=== PATIENT | male | born 1925 | race Caucasian/White ===

== ENCOUNTER 2017-04-05 11:35 | Inpatient (IN) | payer MEDICARE ==
[~2017-04-05] VITALS: Ht 170.2 cm; Wt 76.7 kg
[~2017-04-05 11:35] MED LIST: AMIODARONE HCL200 MG PO; CENTRUM SILVER1 EAC1 PO; CLOPIDOGREL75 MG PO; DOXAZOSIN MESYLA2 MG PO; FERROUS GLUCON325 M1 PO; GEMFIBROZIL600 MG PO; GLIPIZIDE10 MG PO; GLUCOPHAGE500 MG PO; HYDRALAZINE HCL25 MG PO; LASIX20 MG PO; LEVEMIR100 UNIT/1 SQ; MULTIVITAMINS1 EAC7 PO; NOVOLOG MI100 UNITS/ SQ; OMEPRAZOLE20 M1 PO; OMEPRAZOLE40 MG PO; SIMVASTATIN20 MG PO; TAMSULOSIN HCL0.4 MG PO; VITAMIN B-121000 MCG PO; WARFARIN SODIUM5 MG PO
[2017-04-05] MEDS ORDERED: PANTOPRAZOLE 40 MG 10ML VIAL IV STA (12:12)
[2017-04-05] MEDS ORDERED: SODIUM CHLORIDE 0.9% 1000ML 1,000 ML IV STA ×2 (12:12)
[2017-04-05] MEDS ORDERED: AZITHROMYCIN 500MG/NS 250 ML 250 ML IV STA (12:12)
[2017-04-05] MEDS ORDERED: OSELTAMIVIR PHOSPHATE 75 MG CAP PO ONE (12:15)
[2017-04-05] MEDS ORDERED: CEFTRIAXONE SOD 1 GM VIAL IM ONE (12:15)
[2017-04-05] MEDS ORDERED: SODIUM CHLORIDE 0.9% 1000ML 1,000 ML ONE (12:16)
[2017-04-05 12:34] LABS: BASOPHILS # (AUTO) 0.1 (0.0-0.1); BASOPHILS % 0.5 % (0.0-1.0); EOSINOPHILS % 0.2 % (0.0-6.0); HEMATOCRIT 28.7 % (38.2-49.6); HEMOGLOBIN 9.3 g/dL (14.0-18.0); LYMPHOCYTES # (AUTO) 0.9 (1.0-3.2); LYMPHOCYTES % 9.2 % (18.0-39.1); MEAN CORPUSCULAR HEMOGLOBIN 28.4 pg (28-32); MEAN CORPUSCULAR HGB CONC 32.4 g/dL (31-35); MEAN CORPUSCULAR VOLUME 87.8 fL (81-99); MONOCYTES # (AUTO) 0.8 (0.2-0.8); MONOCYTES % 8.5 % (4.4-11.3); NEUTROPHILS # (AUTO) 7.4 (2.1-6.9); NEUTROPHILS % 80.6 % (38.7-80.0); PLATELET COUNT 234 x10e3/uL (140-360); RED BLOOD COUNT 3.27 x10e6/uL (4.3-5.7); RED CELL DISTRIBUTION WIDTH 15.6 % (11.7-14.4)
--- NOTE | 2017-04-05 12:44 | Diagnostic Imaging Report ---
PROCEDURE: A single AP view of the chest. COMPARISON: 05/01/16 INDICATIONS: COUGH, CHEST PAIN, FLU-LIKE SYMPTOMS FINDINGS: Lines/tubes: None. Lungs: Low lung volumes. There is no evidence of pneumonia or pulmonary edema. Minimal left basilar subsegmental atelectasis. Pleura: There is no pleural effusion or pneumothorax. Heart and mediastinum: The heart and the mediastinum are unremarkable. Bones: No acute bony abnormality. IMPRESSION: 1. No acute cardiopulmonary disease. Dictated by: Alonso Aguirre M.D. on 04/05/2017 at 12:52 Electronically approved by: Alonso Aguirre M.D. on 04/05/2017 at 12:52
[2017-04-05 12:47] LABS: ALBUMIN 3.1 g/dL (3.5-5.0); ALBUMIN/GLOBULIN RATIO 0.8 (0.8-2.0); ANION GAP 16.7 mmol/L (8-16); CALCIUM 8.6 mg/dL (8.4-10.2); CREATININE, SERUM 2.84 mg/dL (0.72-1.25); MAGNESIUM 2.1 MG/DL (1.3-2.1); POTASSIUM 3.7 mmol/L (3.5-5.1)
[2017-04-05 12:48] LABS: INR 1.01; PARTIAL THROMBOPLASTIN TIME 31.5 seconds (23.8-35.5); PROTHROMBIN TIME 13.8 seconds (11.9-14.5)
[2017-04-05 13:06] LABS: CREATINE KINASE MB 1.1 ng/mL (0.00-5.00); THYROID STIMULATING HORMONE 1.024 uIU/mL (0.350-4.940); TROPONIN I 0.087 ng/mL (0-0.300)
[2017-04-05] MEDS ORDERED: DEXTROSE 50% SYRINGE 50 ML IV PRN (13:30)
[2017-04-05] MEDS ORDERED: BUPROPION HCL75 MG PO (14:11)
[2017-04-05] MEDS ORDERED: MIRTAZAPINE30 MG PO (14:11)
[2017-04-05] MEDS: CEFTRIAXONE SOD 1 GM VIAL IV SCH (14:15)
[2017-04-05 14:46] LABS: BILIRUBIN,URINE NEGATIVE (NEGATIVE); CLARITY,URINE CLEAR (CLEAR); COLOR,URINE YELLOW (YELLOW); KETONES,URINE NEGATIVE (NEGATIVE); LEUKOCYTE ESTERASE ,URINE NEGATIVE (NEGATIVE); NITRITE,URINE NEGATIVE (NEGATIVE); PROTEIN,URINE DIPSTICK 1+ (NEGATIVE); URINE UROBILINOGEN 0.2 mg/dL (0.2 - 1)
[2017-04-05 14:53] LABS: EPITHELIAL CELLS,URINE RARE /LPF
[2017-04-05] MEDS: ALBUTEROL SULF 0.083% NEB SOLN 3 ML NEB NEB SCH ×2 (16:17→19:27)
[2017-04-05] MEDS: INSULIN REGULAR, HUMAN 100 UNIT/1 ML 3ML VIAL SQ SCH ×2 (17:00→21:03)
[2017-04-05] MEDS ORDERED: TAMSULOSIN HCL 0.4 MG CAP PO SCH (17:00)
[2017-04-05] MEDS ORDERED: WARFARIN SOD 5 MG TAB PO SCH (17:00)
[2017-04-05] MEDS ORDERED: FERROUS GLUCONATE 325 MG PO SCH (17:00)
[2017-04-05 17:31] VITALS: BP 119/55
[2017-04-05] MEDS: SODIUM CHLORIDE 0.9% 1000ML 1,000 ML IV SCH (18:31)
[2017-04-05] MEDS: OSELTAMIVIR PHOSPHATE 75 MG CAP PO SCH (18:35)
[2017-04-05] MEDS: FERROUS SULFATE 325 MG TAB PO SCH (18:35)
[2017-04-05] MEDS: IPRATROPIUM BROMIDE 0.02% 2.5 ML NEB NEB SCH (19:27)
[2017-04-05 20:00] VITALS: BP 119/58
[2017-04-05] MEDS: SIMVASTATIN 20 MG TAB PO SCH (21:00)
[2017-04-05 21:04] LABS: CREATINE KINASE MB 1.2 ng/mL (0.00-5.00); TROPONIN I 0.088 ng/mL (0-0.300)
[2017-04-05 21:20] VITALS: BP 119/58
[2017-04-06] VITALS: BP 102/52
[2017-04-06] MEDS: ALBUTEROL SULF 0.083% NEB SOLN 3 ML NEB NEB SCH ×6 (00:05→19:15)
[2017-04-06] MEDS: IPRATROPIUM BROMIDE 0.02% 2.5 ML NEB NEB SCH ×4 (00:05→19:15)
[2017-04-06] MEDS: CEFTRIAXONE SOD 1 GM VIAL IV SCH ×2 (01:30→13:30)
[2017-04-06] MEDS: SODIUM CHLORIDE 0.9% 1000ML 1,000 ML IV SCH ×3 (02:32→21:28)
[2017-04-06 04:00] VITALS: BP 134/65
--- NOTE | 2017-04-06 06:40 | Diagnostic Imaging Report ---
EXAM: CHEST SINGLE (PORTABLE), AP 1 view DATE: 04/06/2017 5:00 AM Time stamp on exam: 0259 hours INDICATION: Pneumonia COMPARISON: AP view of the chest April 05, 2017 FINDINGS: LINES/TUBES: None LUNGS: Reticulonodular changes left lung base. PLEURA: No effusions or pneumothorax. HEART AND MEDIASTINUM: Normal size and contour. BONES AND SOFT TISSUES: No acute findings. IMPRESSION: Reticulonodular changes left lung base. This could represent atelectasis or pneumonia. Signed by: Dr. Roseanna Andre M.D. on 04/06/2017 6:37 AM
[2017-04-06] MEDS: INSULIN REGULAR, HUMAN 100 UNIT/1 ML 3ML VIAL SQ SCH ×4 (07:30→21:31)
[2017-04-06 08:28] LABS: ALBUMIN 2.5 g/dL (3.5-5.0); ALBUMIN/GLOBULIN RATIO 0.8 (0.8-2.0); ANION GAP 11.2 mmol/L (8-16); CALCIUM 7.8 mg/dL (8.4-10.2); CREATININE, SERUM 2.44 mg/dL (0.72-1.25); POTASSIUM 3.2 mmol/L (3.5-5.1)
[2017-04-06 08:58] LABS: BASOPHILS % 0.2 % (0.0-1.0); EOSINOPHILS # (AUTO) 0.1 (0.0-0.4); EOSINOPHILS % 1.4 % (0.0-6.0); LYMPHOCYTES # (AUTO) 1.5 (1.0-3.2); LYMPHOCYTES % 35.1 % (18.0-39.1); MEAN CORPUSCULAR HEMOGLOBIN 28.7 pg (28-32); MEAN CORPUSCULAR HGB CONC 32.5 g/dL (31-35); MEAN CORPUSCULAR VOLUME 88.4 fL (81-99); MONOCYTES # (AUTO) 0.6 (0.2-0.8); MONOCYTES % 14.9 % (4.4-11.3); NEUTROPHILS % 47.5 % (38.7-80.0); PLATELET COUNT 150 x10e3/uL (140-360); RED BLOOD COUNT 2.58 x10e6/uL (4.3-5.7); RED CELL DISTRIBUTION WIDTH 15.7 % (11.7-14.4)
[2017-04-06 08:59] VITALS: BP 134/58
[2017-04-06 08:59] LABS: CREATINE KINASE MB 1.5 ng/mL (0.00-5.00); TROPONIN I 0.095 ng/mL (0-0.300)
[2017-04-06] MEDS ORDERED: FUROSEMIDE 20 MG TAB PO SCH (09:00)
[2017-04-06] MEDS: CLOPIDOGREL BISULFATE 75 MG TAB PO SCH (09:00)
[2017-04-06] MEDS: AZITHROMYCIN 500MG/NS 250 ML 250 ML IV SCH (09:00)
[2017-04-06] MEDS: TAMSULOSIN HCL 0.4 MG CAP PO SCH (09:00)
[2017-04-06] MEDS: MULTIVITAMINS/MINERALS TAB PO SCH (09:00)
[2017-04-06] MEDS: FUROSEMIDE 40 MG TAB PO SCH (09:00)
[2017-04-06] MEDS: FERROUS SULFATE 325 MG TAB PO SCH ×2 (09:00→17:00)
[2017-04-06] MEDS ORDERED: CYANOCOBALAMIN 1,000 MCG TAB PO SCH (09:00)
[2017-04-06] MEDS: OSELTAMIVIR PHOSPHATE 75 MG CAP PO SCH ×2 (09:00→17:00)
[2017-04-06 09:20] LABS: HEMATOCRIT 22.8 % (38.2-49.6); HEMOGLOBIN 7.4 g/dL (14.0-18.0)
[2017-04-06 13:10] VITALS: BP 100/54
[2017-04-06] MEDS ORDERED: POTASSIUM CHLORIDE 10 MEQ TABCR PO ONE (14:15)
[2017-04-06 16:18] VITALS: BP 111/52
[2017-04-06 20:00] VITALS: BP 143/60
[2017-04-06] MEDS: SIMVASTATIN 20 MG TAB PO SCH (21:28)
[2017-04-07] VITALS (7 sets, daily range): BP systolic 117–150; BP diastolic 55–65
[2017-04-07] MEDS: CEFTRIAXONE SOD 1 GM VIAL IV SCH ×2 (02:00→13:30)
[2017-04-07] MEDS: ALBUTEROL SULF 0.083% NEB SOLN 3 ML NEB NEB SCH ×7 (03:00→23:30)
[2017-04-07] MEDS: SODIUM CHLORIDE 0.9% 1000ML 1,000 ML IV SCH ×2 (06:50→15:19)
[2017-04-07] MEDS: IPRATROPIUM BROMIDE 0.02% 2.5 ML NEB NEB SCH ×5 (07:30→23:30)
[2017-04-07] MEDS: INSULIN REGULAR, HUMAN 100 UNIT/1 ML 3ML VIAL SQ SCH ×4 (08:00→20:09)
[2017-04-07 08:41] LABS: BASOPHILS % 0.7 % (0.0-1.0); EOSINOPHILS # (AUTO) 0.2 (0.0-0.4); EOSINOPHILS % 4.7 % (0.0-6.0); HEMATOCRIT 22.5 % (38.2-49.6); HEMOGLOBIN 7.3 g/dL (14.0-18.0); LYMPHOCYTES % 22.8 % (18.0-39.1); MEAN CORPUSCULAR HEMOGLOBIN 29.1 pg (28-32); MEAN CORPUSCULAR HGB CONC 32.4 g/dL (31-35); MEAN CORPUSCULAR VOLUME 89.6 fL (81-99); MONOCYTES # (AUTO) 0.5 (0.2-0.8); MONOCYTES % 11.5 % (4.4-11.3); NEUTROPHILS # (AUTO) 2.5 (2.1-6.9); NEUTROPHILS % 59.6 % (38.7-80.0); PLATELET COUNT 176 x10e3/uL (140-360); RED BLOOD COUNT 2.51 x10e6/uL (4.3-5.7); RED CELL DISTRIBUTION WIDTH 15.8 % (11.7-14.4)
[2017-04-07] MEDS: AZITHROMYCIN 500MG/NS 250 ML 250 ML IV SCH (09:00)
[2017-04-07] MEDS: TAMSULOSIN HCL 0.4 MG CAP PO SCH (09:00)
[2017-04-07] MEDS: OSELTAMIVIR PHOSPHATE 75 MG CAP PO SCH ×2 (09:00→17:00)
[2017-04-07] MEDS: FERROUS SULFATE 325 MG TAB PO SCH ×2 (09:00→17:00)
[2017-04-07] MEDS: CLOPIDOGREL BISULFATE 75 MG TAB PO SCH (09:00)
[2017-04-07] MEDS: FUROSEMIDE 40 MG TAB PO SCH (09:00)
[2017-04-07] MEDS: MULTIVITAMINS/MINERALS TAB PO SCH (09:00)
[2017-04-07 09:18] LABS: ANION GAP 12.5 mmol/L (8-16); CALCIUM 7.6 mg/dL (8.4-10.2); CREATININE, SERUM 1.96 mg/dL (0.72-1.25); POTASSIUM 3.5 mmol/L (3.5-5.1)
[2017-04-07] MEDS ORDERED: MAGNESIUM HYDROXIDE 30 ML UDC PO PRN (13:15)
[2017-04-07] MEDS ORDERED: SODIUM CHLORIDE 0.9% 250ML 250 ML IV ONE (14:00)
[2017-04-07] MEDS ORDERED: ACETAMINOPHEN 325 MG TAB PO PRN (14:45)
[2017-04-07] MEDS: FUROSEMIDE INJ 10 MG/ML 2 ML VIAL IV PRN (18:39)
[2017-04-07] MEDS: SIMVASTATIN 20 MG TAB PO SCH (20:13)
[2017-04-07] MEDS ORDERED: SODIUM CHLORIDE 0.9% 250ML 250 ML ONE (22:26)
[2017-04-08] VITALS: BP 155/72
[2017-04-08] MEDS: CEFTRIAXONE SOD 1 GM VIAL IV SCH ×2 (01:30→14:00)
[2017-04-08] MEDS: SODIUM CHLORIDE 0.9% 1000ML 1,000 ML IV SCH ×2 (02:25→15:30)
[2017-04-08] MEDS: ALBUTEROL SULF 0.083% NEB SOLN 3 ML NEB NEB SCH ×6 (03:00→23:34)
[2017-04-08 04:00] VITALS: BP 156/69
[2017-04-08] MEDS: FUROSEMIDE INJ 10 MG/ML 2 ML VIAL IV PRN (04:16)
[2017-04-08 06:02] VITALS: BP 155/72
[2017-04-08 07:11] LABS: BASOPHILS % 0.7 % (0.0-1.0); EOSINOPHILS # (AUTO) 0.3 (0.0-0.4); EOSINOPHILS % 5.5 % (0.0-6.0); HEMATOCRIT 28.8 % (38.2-49.6); HEMOGLOBIN 9.5 g/dL (14.0-18.0); LYMPHOCYTES # (AUTO) 1.3 (1.0-3.2); MEAN CORPUSCULAR HEMOGLOBIN 28.4 pg (28-32); MONOCYTES # (AUTO) 0.5 (0.2-0.8); MONOCYTES % 9.6 % (4.4-11.3); NEUTROPHILS # (AUTO) 3.2 (2.1-6.9); NEUTROPHILS % 59.5 % (38.7-80.0); PLATELET COUNT 158 x10e3/uL (140-360); RED BLOOD COUNT 3.35 x10e6/uL (4.3-5.7); RED CELL DISTRIBUTION WIDTH 15.7 % (11.7-14.4)
[2017-04-08] MEDS: INSULIN REGULAR, HUMAN 100 UNIT/1 ML 3ML VIAL SQ SCH ×4 (07:30→21:36)
[2017-04-08] MEDS: IPRATROPIUM BROMIDE 0.02% 2.5 ML NEB NEB SCH ×3 (08:00→20:05)
[2017-04-08 09:01] VITALS: BP 159/67
[2017-04-08] MEDS: FERROUS SULFATE 325 MG TAB PO SCH ×2 (09:54→17:00)
[2017-04-08] MEDS: MULTIVITAMINS/MINERALS TAB PO SCH (09:54)
[2017-04-08] MEDS: AZITHROMYCIN 500MG/NS 250 ML 250 ML IV SCH (09:54)
[2017-04-08] MEDS: FUROSEMIDE 40 MG TAB PO SCH (09:54)
[2017-04-08] MEDS: OSELTAMIVIR PHOSPHATE 75 MG CAP PO SCH ×2 (09:54→17:00)
[2017-04-08] MEDS: TAMSULOSIN HCL 0.4 MG CAP PO SCH (09:54)
[2017-04-08] MEDS: HYDRALAZINE HCL 25 MG TAB PO SCH ×2 (15:26→21:35)
[2017-04-08 17:36] VITALS: BP 141/66
[2017-04-08 20:00] VITALS: BP 131/61
[2017-04-08] MEDS: SIMVASTATIN 20 MG TAB PO SCH (21:35)
--- NOTE | 2017-04-08 21:56 | Consultation ---
DATE OF CONSULTATION: April 07, 2017 CARDIOLOGY CONSULTATION REASON FOR CONSULTATION: Evaluate cardiac status. HISTORY OF PRESENT ILLNESS: Mr. Martínez is an 89-year-old gentleman who is well known to us with past medical history of hypertension, hypercholesterolemia, coronary artery disease with prior history of PCI to the circumflex and LAD, history of anemia, type 2 diabetes, chronic kidney disease, stage 3 with prior history of volume overload. The patient does have a history of paroxysmal atrial fibrillation and is off anticoagulation therapy due to his anemia issues and history of mechanical falls in the past. On the patient's recent history, he denies any chest pain or discomfort. He had been doing well up until yesterday. He just felt not quite himself and had exertional dyspnea and difficulty standing up, just feeling not quite himself. The patient's daughter has been experiencing URI symptoms and was noted to have low-grade fevers and just mild nasal stuffiness. He was brought into the emergency room where he was noted to be severely anemic with hemoglobin of 7.3 and hematocrit of 22.5 and had a positive influenza A screen. The patient was admitted for further care and management. We had a long discussion today with the patient and family at the bedside. He reports feeling relatively okay today and feels a little bit more energetic after receiving some gentle IV fluids. He reports low-grade fevers, a little bit of chills and does report receiving an influenza vaccine earlier this year. In fact, he reports his daughter is a little bit worse off than him. He denies any bright red blood per rectum, melena or any hematemesis, but does have chronic anemia and has had to receive blood in the past. The patient is on the verge of receiving packed red blood cells for his anemia. PAST MEDICAL HISTORY: 1. Hypertension, essential. 2. Hypercholesterolemia. 3. Chronic kidney disease, stage 3, with baseline serum creatinine of 1.9 range. 4. History of volume overload secondary to his renal issues. 5. History of coronary artery disease with prior history of PCI to the circumflex and LAD arteries. 6. Systolic heart failure with EF baseline about 40%. 7. History of paroxysmal atrial fibrillation and sick sinus syndrome, not an anticoagulation therapy due to anemia. 8. DJD. 9. History of diverticulosis. PAST SURGICAL HISTORY: 1. History of appendectomy. 2. History of tonsillectomy. 3. History of prostate and bladder surgeries in 2014. 4. History of bilateral cataract surgery. FAMILY HISTORY: Mother at 72 with aneurysm and heart disease. Father at 82 with accident. SOCIAL HISTORY: He is a . He is a former smoker. He quit in 1986. However, he actively dips tobacco and is dipping today. Denies any alcohol or illicit drug use. ALLERGIES: NO KNOWN DRUG ALLERGIES. HOME MEDICATIONS: 1. Amiodarone 200 mg Saturday, Saturday and Saturday. 2. Wellbutrin 75 mg daily. 3. Hydralazine 50 mg b.i.d. 4. Omeprazole 40 mg daily. 5. Insulin, Levemir daily. 6. Remeron 30 mg nightly. 7. Plavix 75 mg daily. 8. Gluconate 325 mg b.i.d. 9. Lasix 40 mg daily. 10. Multivitamin tablet daily. 11. Zocor 20 mg daily. 12. Tamsulosin 0.4 mg daily. REVIEW OF SYSTEMS: GENERAL: Positive for fatigue, malaise, low-grade fevers and slight chills. HEENT: No visual complaints. A little bit of stuffy nose. No sore throat. RESPIRATORY: Has slight cough and a little bit of exertional dyspnea. CARDIOVASCULAR: As per HPI. No chest pain or discomfort. GI: Denies any melena, bright red blood per rectum, nausea or vomiting. : Has urinary frequency and nocturia. HEMATOLOGY: Positive for easy bruising, no bleeding. ID: No known history of immunodeficiency. MUSCULOSKELETAL: Chronic back pains. Denies any leg swelling or leg cramps. NEUROLOGIC: Denies any focal weakness, numbness, tingling, seizures, headache. Remainder of the review of systems negative, otherwise mentioned. PHYSICAL EXAMINATION VITAL SIGNS: Height of 67 inches, weight of 168 pounds, temperature 97.6, pulse 66, respiratory rate 24, blood pressure 142/63, oxygen saturation 98% on room air. GENERAL: This is a frail, old man who is currently in no apparent distress. HEENT: Normocephalic, atraumatic. Extraocular movements are intact. Oropharynx is clear with poor dentition. NECK: No lymphadenopathy, no thyromegaly. There is a left carotid bruit. CARDIOVASCULAR: Regular rate and rhythm. Normal S1 and S2. A soft 3/6 systolic ejection murmur at the right upper sternal border. LUNGS: Show poor air flow throughout lung melendez. Diminished air entry consistent with COPD type changes. ABDOMEN: Soft and nontender, nondistended with normoactive bowel sounds. No hepatosplenomegaly. BACK: No costovertebral angle tenderness. EXTREMITIES: Warm with scattered varicose veins. There is 1+ to 2+ radial pulses. There are 2+ femoral pulses and diminished pedal pulses. NEUROLOGIC: He is alert and oriented. He has got symmetric bilateral leg weakness. Of note, usually he using walking aid for ambulation. PSYCHIATRIC: Normal fluent speech, appropriate affect, no anxiety or delusions. DIAGNOSES 1. Weakness secondary to sepsis, influenza A infection. 2. Chronic systolic heart failure. 3. Symptomatic anemia. 4. History of paroxysmal atrial fibrillation, not on anticoagulation therapy due to comorbidities. 5. Chronic kidney disease stage 3. 6. Coronary artery disease with prior history of stenting to the LAD and circumflex arteries, most recently in December 2014. 7. Carotid artery disease. 8. Type 2 diabetes with complications. PLANS/RECOMMENDATIONS: 1. From a cardiovascular standpoint, I will be largely supportive. I agree with Tamiflu treatment as symptom complexes started within the past 48 hours. 2. I agree with packed red blood cell transfusion. Will need some Lasix in between doses. 3. Will hold his antiplatelet therapy for now in light of his significant anemia. 4. Aggressive risk factor modification, medical therapy as tolerated. 5. Of note, the patient is not on beta jorge due to his prior history of issues with bradyarrhythmias. 6. The patient is on rhythm control strategy with amiodarone therapy. Will continue that. 7. Will continue to follow this patient with you. Thank you for this referral. Job#: [id number]
[2017-04-09] VITALS: BP 157/69
[2017-04-09] MEDS: CEFTRIAXONE SOD 1 GM VIAL IV SCH ×2 (02:24→14:00)
[2017-04-09] MEDS: SODIUM CHLORIDE 0.9% 1000ML 1,000 ML IV SCH ×2 (03:00→13:00)
[2017-04-09] MEDS: IPRATROPIUM BROMIDE 0.02% 2.5 ML NEB NEB SCH ×3 (03:50→11:20)
[2017-04-09] MEDS: ALBUTEROL SULF 0.083% NEB SOLN 3 ML NEB NEB SCH ×5 (03:50→18:55)
[2017-04-09 04:00] VITALS: BP 171/81
[2017-04-09 07:05] LABS: BASOPHILS % 0.6 % (0.0-1.0); EOSINOPHILS # (AUTO) 0.2 (0.0-0.4); EOSINOPHILS % 3.2 % (0.0-6.0); HEMATOCRIT 30.9 % (38.2-49.6); LYMPHOCYTES # (AUTO) 1.1 (1.0-3.2); LYMPHOCYTES % 17.6 % (18.0-39.1); MEAN CORPUSCULAR HGB CONC 32.4 g/dL (31-35); MEAN CORPUSCULAR VOLUME 86.6 fL (81-99); MONOCYTES # (AUTO) 0.5 (0.2-0.8); MONOCYTES % 8.7 % (4.4-11.3); NEUTROPHILS # (AUTO) 4.3 (2.1-6.9); NEUTROPHILS % 69.3 % (38.7-80.0); PLATELET COUNT 166 x10e3/uL (140-360); RED BLOOD COUNT 3.57 x10e6/uL (4.3-5.7); RED CELL DISTRIBUTION WIDTH 15.5 % (11.7-14.4)
[2017-04-09] MEDS: INSULIN REGULAR, HUMAN 100 UNIT/1 ML 3ML VIAL SQ SCH ×4 (07:30→21:54)
[2017-04-09 07:31] LABS: ALBUMIN 2.8 g/dL (3.5-5.0); ALBUMIN/GLOBULIN RATIO 0.8 (0.8-2.0); ANION GAP 13.5 mmol/L (8-16); CALCIUM 8.1 mg/dL (8.4-10.2); CREATININE, SERUM 1.97 mg/dL (0.72-1.25); POTASSIUM 3.5 mmol/L (3.5-5.1)
[2017-04-09 08:19] VITALS: BP 140/66
[2017-04-09] MEDS: FERROUS SULFATE 325 MG TAB PO SCH ×2 (09:54→17:49)
[2017-04-09] MEDS: HYDRALAZINE HCL 25 MG TAB PO SCH ×3 (09:54→21:53)
[2017-04-09] MEDS: OSELTAMIVIR PHOSPHATE 75 MG CAP PO SCH ×2 (09:54→17:49)
[2017-04-09] MEDS: FUROSEMIDE 40 MG TAB PO SCH (09:54)
[2017-04-09] MEDS: MULTIVITAMINS/MINERALS TAB PO SCH (09:54)
[2017-04-09] MEDS: AZITHROMYCIN 500MG/NS 250 ML 250 ML IV SCH (09:54)
[2017-04-09] MEDS: TAMSULOSIN HCL 0.4 MG CAP PO SCH (09:54)
[2017-04-09 12:38] VITALS: BP 114/54
--- NOTE | 2017-04-09 13:59 | Diagnostic Imaging Report ---
PROCEDURE: Frontal and lateral views of the chest. COMPARISON: Chest radiograph from 04/06/2017. CT of the abdomen and pelvis from 12/12/2012. INDICATIONS: FLU/SHORTNESS OF BREATH FINDINGS: Lines/tubes: None. Lungs: The lungs are well inflated and clear. There is no evidence of pneumonia or pulmonary edema. Pleura: There is no pleural effusion or pneumothorax. Heart and mediastinum: The heart size is at the upper limit of normal. Bones: No acute bony abnormality. Chronic compression fracture of the T12 vertebral body with focal kyphosis at this level. IMPRESSION: No evidence of infection or edema. Dictated by: Anand William M.D. on 04/09/2017 at 14:07 Electronically approved by: Anand William M.D. on 04/09/2017 at 14:07
[2017-04-09 16:37] VITALS: BP 135/65
[2017-04-09 20:00] VITALS: BP 169/72
[2017-04-09] MEDS: SIMVASTATIN 20 MG TAB PO SCH (21:53)
[2017-04-10] VITALS: BP 162/69
[2017-04-10] MEDS: ALBUTEROL SULF 0.083% NEB SOLN 3 ML NEB NEB SCH ×4 (00:50→15:30)
[2017-04-10] MEDS: CEFTRIAXONE SOD 1 GM VIAL IV SCH ×2 (01:55→13:26)
[2017-04-10 04:00] VITALS: BP 131/78
[2017-04-10] MEDS: IPRATROPIUM BROMIDE 0.02% 2.5 ML NEB NEB SCH ×2 (07:15→12:00)
[2017-04-10] MEDS: INSULIN REGULAR, HUMAN 100 UNIT/1 ML 3ML VIAL SQ SCH ×2 (07:30→11:30)
[2017-04-10 08:00] VITALS: BP 138/70
[2017-04-10] MEDS: FERROUS SULFATE 325 MG TAB PO SCH (09:44)
[2017-04-10] MEDS: HYDRALAZINE HCL 25 MG TAB PO SCH ×2 (09:44→15:00)
[2017-04-10] MEDS: AZITHROMYCIN 500MG/NS 250 ML 250 ML IV SCH (09:44)
[2017-04-10] MEDS: TAMSULOSIN HCL 0.4 MG CAP PO SCH (09:44)
[2017-04-10] MEDS: OSELTAMIVIR PHOSPHATE 75 MG CAP PO SCH (09:45)
[2017-04-10] MEDS: MULTIVITAMINS/MINERALS TAB PO SCH (09:45)
[2017-04-10] MEDS: FUROSEMIDE 40 MG TAB PO SCH (09:45)
[2017-04-10] MEDS: SODIUM CHLORIDE 0.9% 1000ML 1,000 ML IV SCH ×2 (13:19→13:25)
== END 2017-04-10 16:00 | DRG 194 ==
LOC: ER 11:35 → ERHOLD 13:35 → MED/SURG3 16:34
PROC: 30233N1 Transfusion of Nonautologous Red Blood Cells into Peripheral Vein, Percutaneous Approach (ICD-10-PCS; principal; 2017-04-07)
DX: J10.1 Influenza due to other identified influenza virus with other respiratory manifestations (principal); I13.0 Hypertensive heart and chronic kidney disease with heart failure and stage 1 through stage 4 chronic kidney disease, or unspecified chronic kidney disease; E11.22 Type 2 diabetes mellitus with diabetic chronic kidney disease; I50.22 Chronic systolic (congestive) heart failure; I48.0 Paroxysmal atrial fibrillation; I49.5 Sick sinus syndrome; Z79.01 Long term (current) use of anticoagulants; N18.3 Chronic kidney disease, stage 3 (moderate); Z79.4 Long term (current) use of insulin; I25.10 Atherosclerotic heart disease of native coronary artery without angina pectoris; Z95.5 Presence of coronary angioplasty implant and graft; D64.9 Anemia, unspecified; R53.81 Other malaise; Z87.891 Personal history of nicotine dependence
CPT/HCPCS: 36415; 36430; 71010; 71020; 80048; 80053; 81001; 82550; 82553; 82948; 83605; 83690; 83735; 83880; 84443; 84484; 85025; 85610; 85730; 86850; 86900; 86920; 87040; 87086; 87400; 93005; 97139; 99284; J0456; J0696; J1940; J7030; J7050; P9016

== ENCOUNTER → 2017-04-16 | Outpatient (CLI) | payer OTHER ==
[~2017-04-16] MED LIST changes: +BUPROPION HCL75 MG PO; +MIRTAZAPINE30 MG PO
[2017-04-17 11:34] LABS: BASOPHILS # (AUTO) 0.1 (0.0-0.1); BASOPHILS % 0.6 % (0.0-1.0); EOSINOPHILS # (AUTO) 0.2 (0.0-0.4); EOSINOPHILS % 2.3 % (0.0-6.0); HEMATOCRIT 30.2 % (38.2-49.6); HEMOGLOBIN 9.8 g/dL (14.0-18.0); LYMPHOCYTES # (AUTO) 0.9 (1.0-3.2); MEAN CORPUSCULAR HEMOGLOBIN 28.5 pg (28-32); MEAN CORPUSCULAR HGB CONC 32.5 g/dL (31-35); MEAN CORPUSCULAR VOLUME 87.8 fL (81-99); MONOCYTES # (AUTO) 0.7 (0.2-0.8); MONOCYTES % 8.6 % (4.4-11.3); NEUTROPHILS # (AUTO) 5.9 (2.1-6.9); NEUTROPHILS % 76.5 % (38.7-80.0); PLATELET COUNT 240 x10e3/uL (140-360); RED BLOOD COUNT 3.44 x10e6/uL (4.3-5.7); RED CELL DISTRIBUTION WIDTH 15.2 % (11.7-14.4)
[2017-04-17 11:43] LABS: ANION GAP 14.1 mmol/L (8-16); CALCIUM 8.8 mg/dL (8.4-10.2); CREATININE, SERUM 2.02 mg/dL (0.72-1.25); POTASSIUM 4.1 mmol/L (3.5-5.1)
== END ==
LOC: NPA 09:00
DX: Z02.89 Encounter for other administrative examinations (principal)
CPT/HCPCS: 36415; 80048; 85025

== ENCOUNTER → 2017-04-25 | Outpatient (CLI) | payer OTHER | LOC: NPA 13:30 | DX: Z02.89 Encounter for other administrative examinations (principal) | CPT/HCPCS: 87086 ==

== ENCOUNTER → 2017-04-26 | Outpatient (CLI) | payer OTHER ==
[2017-04-26 11:58] LABS: BASOPHILS % 0.3 % (0.0-1.0); EOSINOPHILS % 0.2 % (0.0-6.0); HEMATOCRIT 29.1 % (38.2-49.6); HEMOGLOBIN 9.2 g/dL (14.0-18.0); LYMPHOCYTES # (AUTO) 0.4 (1.0-3.2); LYMPHOCYTES % 4.3 % (18.0-39.1); MEAN CORPUSCULAR HEMOGLOBIN 28.5 pg (28-32); MEAN CORPUSCULAR HGB CONC 31.6 g/dL (31-35); MEAN CORPUSCULAR VOLUME 90.1 fL (81-99); MONOCYTES # (AUTO) 0.5 (0.2-0.8); MONOCYTES % 4.8 % (4.4-11.3); NEUTROPHILS % 89.4 % (38.7-80.0); PLATELET COUNT 259 x10e3/uL (140-360); RED BLOOD COUNT 3.23 x10e6/uL (4.3-5.7); RED CELL DISTRIBUTION WIDTH 16.1 % (11.7-14.4)
[2017-04-26 12:09] LABS: ANION GAP 20.7 mmol/L (8-16); CALCIUM 8.3 mg/dL (8.4-10.2); CREATININE, SERUM 2.44 mg/dL (0.72-1.25); POTASSIUM 4.7 mmol/L (3.5-5.1)
[2017-04-28 11:11] LABS: CLARITY,URINE SL CLOUDY (CLEAR); COLOR,URINE YELLOW (YELLOW); LEUKOCYTE ESTERASE ,URINE NEGATIVE (NEGATIVE); NITRITE,URINE NEGATIVE (NEGATIVE); PROTEIN,URINE DIPSTICK 2+ (NEGATIVE)
[2017-04-28 11:12] LABS: BILIRUBIN,URINE NEGATIVE (NEGATIVE); EPITHELIAL CELLS,URINE RARE /LPF; KETONES,URINE TRACE (NEGATIVE); URINE UROBILINOGEN 0.2 mg/dL (0.2 - 1); WBC,URINE (MAN) 0-5 /HPF (0-5)
[2017-05-02 17:31] LABS: BASOPHILS # (AUTO) 0.1 (0.0-0.1); BASOPHILS % 0.5 % (0.0-1.0); EOSINOPHILS # (AUTO) 0.2 (0.0-0.4); EOSINOPHILS % 2.4 % (0.0-6.0); HEMATOCRIT 30.5 % (38.2-49.6); HEMOGLOBIN 9.7 g/dL (14.0-18.0); LYMPHOCYTES # (AUTO) 0.7 (1.0-3.2); LYMPHOCYTES % 7.8 % (18.0-39.1); MEAN CORPUSCULAR HEMOGLOBIN 28.8 pg (28-32); MEAN CORPUSCULAR HGB CONC 31.8 g/dL (31-35); MEAN CORPUSCULAR VOLUME 90.5 fL (81-99); MONOCYTES # (AUTO) 0.7 (0.2-0.8); MONOCYTES % 7.8 % (4.4-11.3); NEUTROPHILS # (AUTO) 7.5 (2.1-6.9); NEUTROPHILS % 80.5 % (38.7-80.0); PLATELET COUNT 256 x10e3/uL (140-360); RED BLOOD COUNT 3.37 x10e6/uL (4.3-5.7); RED CELL DISTRIBUTION WIDTH 16.6 % (11.7-14.4)
[2017-05-02 17:32] LABS: ANION GAP 15.9 mmol/L (8-16); CALCIUM 8.5 mg/dL (8.4-10.2); CREATININE, SERUM 2.24 mg/dL (0.72-1.25); POTASSIUM 3.9 mmol/L (3.5-5.1)
== END ==
LOC: NPA 11:20
DX: Z02.89 Encounter for other administrative examinations (principal)
CPT/HCPCS: 36415; 80048; 81001; 82140; 85025

== ENCOUNTER → 2017-05-02 | Outpatient (CLI) | payer OTHER | LOC: NPA 11:30 | DX: Z02.89 Encounter for other administrative examinations (principal) ==

== ENCOUNTER → 2017-05-06 | Outpatient (CLI) | payer OTHER ==
[2017-05-06 17:17] LABS: ANION GAP 14.7 mmol/L (8-16); CALCIUM 8.5 mg/dL (8.4-10.2); CREATININE, SERUM 2.08 mg/dL (0.72-1.25); POTASSIUM 3.7 mmol/L (3.5-5.1)
[2017-05-06 17:19] LABS: BASOPHILS % 0.3 % (0.0-1.0); EOSINOPHILS # (AUTO) 0.2 (0.0-0.4); EOSINOPHILS % 1.6 % (0.0-6.0); HEMATOCRIT 31.5 % (38.2-49.6); LYMPHOCYTES # (AUTO) 0.8 (1.0-3.2); MEAN CORPUSCULAR HEMOGLOBIN 28.7 pg (28-32); MEAN CORPUSCULAR HGB CONC 31.7 g/dL (31-35); MEAN CORPUSCULAR VOLUME 90.5 fL (81-99); MONOCYTES # (AUTO) 0.9 (0.2-0.8); MONOCYTES % 8.7 % (4.4-11.3); NEUTROPHILS # (AUTO) 7.9 (2.1-6.9); NEUTROPHILS % 80.8 % (38.7-80.0); PLATELET COUNT 233 x10e3/uL (140-360); RED BLOOD COUNT 3.48 x10e6/uL (4.3-5.7); RED CELL DISTRIBUTION WIDTH 16.5 % (11.7-14.4)
== END ==
LOC: NPA 11:00
DX: Z02.89 Encounter for other administrative examinations (principal)
CPT/HCPCS: 36415; 80048; 85025

== ENCOUNTER 2017-06-19 03:42 | Emergency (ER) | payer MEDICARE ==
[~2017-06-19] VITALS: Ht 170.2 cm; Wt 76.7 kg
--- OUTSIDE RECORDS SUMMARY | 2017-06-19 03:44 | XMS REPORT ---
Author Author [facility] Address Unknown Phone Unavailable Care Team Providers Care Animal Services Officer Name Role Phone HELENA LEVINE Unavailable Unavailable Problems This patient has no known problems. Allergies, Adverse Reactions, Alerts This patient has no known allergies or adverse reactions. Medications This patient has no known medications. Results Test Description Test Time Test Comments Text Results Atomic Results Result Comments CHEST 2 VIEWS [place] [address] Patient Name: DOLORES BENITEZ MR #: [id number] : 1925 Age/Sex: 89/M Req #: [id number] Adm Physician: HELENA LEVINE MD Ordered by: HELENA LEVINE MD Report #: [id number] Location: [facility] Room/Bed: [employer] _ Procedure: [id number] DX/CHEST 2 VIEWS Exam Date: 04/08/17 Exam Time: 1309 REPORT STATUS: Signed PROCEDURE: Frontal and lateral views of the chest. COMPARISON: Chest radiograph from 2016. CT of the abdomen and pelvis from 12/12/2012. INDICATIONS: FLU/ SHORTNESS OF BREATH FINDINGS: Lines/tubes: None. Lungs: The lungs are well inflated and clear. There is no evidence of pneumonia or pulmonary edema. Pleura: There is no pleural effusion or pneumothorax. Heart and mediastinum: The heart size is at the upper limit of normal. Bones: No acute bony abnormality. Chronic compression fracture of the T12 vertebral body with focal kyphosis at this level. IMPRESSION: No evidence of infection or edema. Dictated by: Shahana William M.D. on 04/09/2017 at 14:07 Electronically approved by: Shahana William M.D. on 04/09/2017 at 14:07 Dictated By: SHAHANA WILLIAM MD 06 Transcribed By: HEIDI on 04/09/171406 COPY TO: HELENA LEVINE MD CHEST SINGLE (PORTABLE) [place] [address] Patient Name: DOLORES BENITEZ MR #: [id number] : 1925 Age/Sex: 89/M Req #: [id number] Adm Physician: HELENA LEVINE MD Ordered by: ANGELIC MERCADO MD, MD Report #: [id number] Location: MED/SURG3 Room/Bed: [facility] Procedure: [id number] DX/CHEST SINGLE (PORTABLE) Exam Date: 04/06/17 Exam Time: 0555 REPORT STATUS: Signed EXAM: CHEST SINGLE (PORTABLE), AP 1 view DATE: 04/06/2017 5: 00 AM Time stamp on exam: 0259 hours INDICATION: Pneumonia COMPARISON: AP view of the chest April 05, 2017 FINDINGS: LINES/TUBES: None LUNGS: Reticulonodular changes left lung base. PLEURA: No effusions or pneumothorax. HEART AND MEDIASTINUM: Normal size and contour. BONES AND SOFT TISSUES: No acute findings. IMPRESSION: Reticulonodular changes left lung base. This could represent atelectasis or pneumonia. Signed by: Dr. Komal Andre M.D. on 04/06/2017 6:37 AM Dictated By: KOMAL ANDRE MD 6 COPY TO: ANGELIC MERCADO CHEST SINGLE (PORTABLE) [place] [address] Patient Name: DOLORES BENITEZ MR #: [id number] : 1925 Age/Sex: 89/M Req #: [id number] Adm Physician: Ordered by: ANGELIC MERCADO MD, MD Report #: [id number] Location: ER Room/Bed: Procedure: [id number] DX/CHEST SINGLE (PORTABLE) Exam Date: 04/05/17 Exam Time: 1220 REPORT STATUS: Signed PROCEDURE: A single AP view of the chest. COMPARISON: 05/01/16 INDICATIONS: COUGH, CHEST PAIN, FLU-LIKE SYMPTOMS FINDINGS: Lines/tubes: None. Lungs: Low lung volumes. There is no evidence of pneumonia or pulmonary edema. Minimal left basilar subsegmental atelectasis. Pleura: There is no pleural effusion or pneumothorax. Heart and mediastinum: The heart and the mediastinum are unremarkable. Bones: No acute bony abnormality. IMPRESSION: 1. No acute cardiopulmonary disease. Dictated by: Alonso Mai M.D. on 04/05/2017 at 12:52 Electronically approved by: Alonso Mai M.D. on 04/05/2017 at 12:52 Dictated By: ALONSO MAI MD 1252 Transcribed By: HEIDI on 04/05/17 1252 COPY TO: ANGELIC MERCADO
[2017-06-19] MEDS ORDERED: TETANUS/DIPHTHERIA TOX ADULT 0.5 ML SYR ONE (03:52)
[2017-06-19] MEDS ORDERED: MEGESTROL400 MG/10 PO (04:00)
[2017-06-19] MEDS ORDERED: BENADRYL25 M1 PO (04:00)
[2017-06-19] MEDS ORDERED: ALBUTEROL0.63 MG/3 NEB (04:00)
[2017-06-19] MEDS ORDERED: IPRATROPIU0.2 MG/1 M NEB (04:00)
[2017-06-19] MEDS ORDERED: FERROUS SULFAT325 M1 PO (04:00)
[2017-06-19] MEDS ORDERED: MILK OF MA2400 MG/10 PO (04:00)
[2017-06-19] MEDS ORDERED: NOVOLOG100 UNIT/1 (04:00)
[2017-06-19] MEDS ORDERED: TETANUS/DIPHTHERIA TOX ADULT 0.5 ML SYR IM ONE (04:00)
[2017-06-19] MEDS ORDERED: ACETAMINOPHEN325 M1 PO (04:00)
--- NOTE | 2017-06-19 04:41 | Diagnostic Imaging Report ---
Exams: Head and cervical spine CTs without IV contrast History: Trauma, fall Comparison studies: None Technique: Axial images were obtained from the brain and cervical spine. Coronal and sagittal images reconstructed from the axial data. Intravenous contrast: None Findings: Head CT: Scalp: Right frontal-supraorbital scalp hematoma without underlying retained hyperdense foreign body. Bones: No fractures, blastic or lytic lesions. Extra-axial spaces: No masses. No fluid collections. Brain sulci: Mildly prominent. Ventricles: Moderate compensatory dilatation. No acute hydrocephalus. Parenchyma: No mass, acute hemorrhage or acute cortical vascular insults. Small chronic left superior subinsular lacunar infarct. Sellar/suprasellar region: No abnormalities. Craniocervical junction: The foramen magnum is patent. No Chiari one malformation. Included paranasal sinuses: Nonspecific inflammatory right frontoethmoidal mucosal thickening. Cervical spine CT: Fractures: None. Soft tissues: No gross acute abnormalities. Atlantoaxial articulation: Intact. Alignment: Straightened cervical curvature. No subluxations. Cervicomedullary junction: No abnormalities. The foramen magnum is patent. Vertebrae: No infection or neoplasm. Degenerative changes: Moderate degenerative changes at the anterior C1-C2 articulation with moderate dystrophic ossification inferior to the anterior C1 arch. Anterior osteophytosis from C2 to C7. Mildly degenerated disks from C2 to T1. No significant canal stenosis. Mild multilevel facet arthrosis. Mild foraminal stenosis on the left at C3-C4 and mild to moderate foraminal stenosis on the right at C5-C6 due to uncovertebral arthrosis. Incidental findings: Atherosclerotic calcifications in the cervical carotid bulbs, carotid siphons and intradural vertebral arteries with additional mass or calcifications in the scalp. Bilateral lens replacements related to previous cataract surgery. IMPRESSION: Head CT: 1. Right supraorbital scalp hematoma without underlying fracture. 2. No acute intracranial abnormalities. 3. Moderate generalized volume loss. 4. Chronic left subinsular lacunar infarct. Cervical spine CT: 1. No cervical spine fracture or subluxation. 2. Degenerative changes as described. 3. Cannot adequately evaluate ligament, spinal cord and or vascular abnormalities on the basis of this examination. Signed by: Dr. Keegan Willingham M.D. on 06/19/2017 4:38 AM
[2017-06-19 04:58] VITALS: BP 126/73
[2017-06-20] MEDS ORDERED: HYDRALAZINE HCL25 MG PO (13:54)
== END 2017-06-19 06:02 ==
LOC: ER 03:42
DX: S01.81XA Laceration without foreign body of other part of head, initial encounter (principal); W06.XXXA Fall from bed, initial encounter; Y93.84 Activity, sleeping; Y92.003 Bedroom of unspecified non-institutional (private) residence as the place of occurrence of the external cause
CPT/HCPCS: 70450; 72125; 90471; 90714; 99283

== ENCOUNTER 2017-06-20 07:19 | Inpatient (IN) | payer MEDICARE ==
[~2017-06-20] VITALS: Ht 170.2 cm; Wt 66.4 kg
[~2017-06-20 07:19] MED LIST changes: +ACETAMINOPHEN325 M1 PO; +ALBUTEROL0.63 MG/3 NEB; +BENADRYL25 M1 PO; +FERROUS SULFAT325 M1 PO; +IPRATROPIU0.2 MG/1 M NEB; +MEGESTROL400 MG/10 PO; +MILK OF MA2400 MG/10 PO; +NOVOLOG100 UNIT/1
--- OUTSIDE RECORDS SUMMARY | 2017-06-20 07:21 | XMS REPORT | Continuity of Care Document ---
Author Author [facility] Organization [facility] Address [address] [place] [address] Phone Unavailable Care Team Providers Care Electronic Transaction Implementer Name Role Phone HELENA LEVINE MD PCP Insurance Providers Guarantor Abdiel Benitez Address [address] [place] [address] Email NONE Payer [facility] Policy Number [id number] Subscriber's Name Abdiel Benitez Stephanie Relationship 18 Self / Same As Patient Group Number [id number] Group Name RETIRED Effective Date 16 Payer Medicare A & B Policy Number [id number] Subscriber's Name Abdiel Benitez Relationship 18 Self / Same As Patient Group Name RETIRED Effective Date 92 Advance Directives Directive Response Recorded Date/Time Does the patient have an advance directive? Yes 04/05/17 5:50pm If yes, is advance directive on file with [facility]? Yes 04/05/17 5:50pm If not on file with [facility] will patient provide a copy? No 04/05/17 5:50pm Do you have a Directive to Physician? No 06/19/17 4:56am Do you have a Medical Power of Conservation Biology Professor? No 06/19/17 4:56am Do you have an out of hospital Do Not Resuscitate Order? No 06/19/17 4:56am Do you have any special needs we should be aware of? No 06/19/17 4:56am Do you have a support person here with you today? Yes 06/19/17 4:56am Did patient receive Notice of Privacy Practices? Yes 06/19/17 4:56am Did patient receive patient rights and responsibilities? Yes 06/19/17 4:56am Problems Medical Problem Onset Date Status Anemia Unknown CHF (congestive heart failure) Unknown Chest wall pain Unknown Dyspnea Unknown Influenza A Unknown Renal failure Unknown Renal insufficiency Unknown Weakness Unknown Medications Current Home Medications Medication Dose Units Route Directions Days Qty Instructions Start Date Acetaminophen 325 Mg Tablet 650 Mg Oral Every 4 Hours as needed for Pain 5 Days Albuterol Sulfate 0.63 Mg/3 Ml Vial.neb 3 Ml Nebullizer Every 6 Hours as needed for Shortness Of Breath Diphenhydramine Hcl (Benadryl) 25 Mg Capsule 25 Mg Oral Every 6 Hours as needed for Itching Ferrous Sulfate 325 Mg Tablet.dr 325 Mg Oral Twice A Day Furosemide (Lasix) 20 Mg Tablet 40 Mg Oral Daily 30 Tab Insulin Aspart (Novolog) 100 Unit/1 Ml Cartridge Use As Directed Ipratropium [place] 0.2 Mg/1 Ml Solution 2.5 Ml Nebullizer Every 6 Hours as needed for Shortness Of Breath Magnesium Hydroxide (Milk Of Magnesia) 2,400 Mg/10 Ml Oral.susp 10 Ml Oral Every 4 Hours as needed for Constipation Megestrol Acetate 400 Mg/10 Ml Oral.susp 400 Mg Oral Daily Multivitamin (Multivitamins) 1 Each Capsule 1 Tab Oral Daily Simvastatin 20 Mg Tablet 20 Mg Oral Today At 9:00PM Tamsulosin Hcl 0.4 Mg Cap.er.24h 0.4 Mg Oral Daily Past Home Medications Medication Directions Ordered Status Cyanocobalamin (Vitamin B-12) 1,000 Mcg Tab, 1000 Mcg Oral Daily Discontinued Doxazosin Mesylate 2 Mg Tablet, 2 Mg Oral Bedtime Discontinued Gemfibrozil 600 Mg Tablet, 600 Mg Oral Twice A Day Discontinued Glipizide 10 Mg Tablet, 20 Mg Oral Twice A Day Discontinued Insulin Aspart (Novolog Mix 70-30 Vial) 100 Units/Ml Ml, Units Sub-Q Three Times A Day Discontinued Metformin Hcl (Glucophage) 500 Mg Tablet, 500 Mg Oral Twice A Day Discontinued Multivitamin W-Minerals/Lutein (Centrum Silver Tablet) 1 Each Tablet, 1 Tab Oral Daily Discontinued Omeprazole 20 Mg Tablet.dr, 20 Mg Oral Daily Discontinued Simvastatin 20 Mg Tablet, 20 Mg Oral Bedtime Discontinued Warfarin Sodium (Coumadin) 5 Mg Tablet, 5 Mg Oral Daily Discontinued Social History Social History Problem Response Recorded Date/Time Onset Date Status Hx Psychiatric Problems No 04/05/2017 5:50pm Not Applicable Not Applicable Hx Eating Disorder No 04/05/2017 5:50pm Not Applicable Not Applicable Hx Substance Use Disorder No 04/05/2017 5:50pm Not Applicable Not Applicable Hx Depression No 04/05/2017 5:50pm Not Applicable Not Applicable Hx Alcohol Use No 04/05/2017 5:50pm Not Applicable Not Applicable Hx Substance Use Treatment No 04/05/2017 5:50pm Not Applicable Not Applicable Hx Physical Abuse No 04/05/2017 5:50pm Not Applicable Not Applicable Smoking Status Start Date Stop Date Never Smoker Hospital Discharge Instructions No hospital discharge instruction information available. Plan of Care Discharge Date 06/19/17 6:02am Disposition DIS TO [facility] B[facility] Condition at Discharge Stable Instructions/Education Provided Suture Care-Skin Glue Laceration Fall Prevention Forms Provided Work/School Excuse Prescriptions See Medication Section Additional Instructions/Education FOLLOW UP WITH PRIMARY CARE DOCTOR Functional Status No functional status information available. Allergies, Adverse Reactions, Alerts No known allergies. Immunizations No immunization information available. Vital Signs Acute Vital Signs Vital Response Date/Time Temperature (Fahrenheit) 98.4 degrees F (97.6 - 99.5) 04/10/2017 8:00am Pulse Pulse Rate (adult) 87 bpm (60 - 90) 06/19/2017 4:58am Respiratory Rate 18 bpm (12 - 24) 06/19/2017 4:58am Blood Pressure 126/73 mm Hg 06/19/2017 4:58am Height 5 ft 7 in 06/19/2017 3:43am Weight 169 lb 06/19/2017 3:43am Body Mass Index 26.5 kg/m^2 06/19/2017 3:43am Results Laboratory Results Test Name Result Units Flags Reference Collection Date/Time Result Date/ Time Comments Prothrombin Time 13.8 seconds 11.9-14.5 04/05/2017 11:55am 04/05/2017 12:48pm Prothromb Time International Ratio 1.01 04/05/2017 11:55am 2016 12:48pm Oral Anticoagulant Therapy INR Values: 1. Low Intensity Therapy 1.5 - 2.0 2. Moderate Intensity Therapy 2.0 - 3.0 3. High Intensity Therapy(1) 2.5 - 3.5 4. High Intensity Therapy(2) 3.0 - 4.0 5. Panic Value INR > 5.0 Activated Partial Thromboplast Time 31.5 seconds 23.8-35.5 04/05/2017 11 :55am 04/05/2017 12:48pm Influenza Virus Types A,B Antigen POSITIVE FLU A H NEGATIVE 04/05/2017 12:00pm 04/05/2017 1:01pm Results called to at 1300 on 04/05/17 by Hue Velasquez. RB OK. Bedside Glucose 182 mg/dL H 70-120 04/10/2017 11:44am 04/11/2017 8:39am Meter ID: [id number] Lactic Acid Level 15.4 MG/DL 4.5-19.8 04/05/2017 11:55am 04/05/2017 12: 48pm Magnesium Level 2.1 MG/DL 1.3-2.1 04/05/2017 11:55am 04/05/2017 12: 48pm Total Bilirubin 0.4 mg/dL 0.2-1.2 04/09/2017 6:50am 04/09/2017 7:32am Aspartate Amino Transf (AST/SGOT) 22 IU/L 5-34 04/09/2017 6:50am 2016 7:32am Alanine Aminotransferase (ALT/SGPT) 14 IU/L 0-55 04/09/2017 6:50am 7:32am Total Protein 6.3 g/dL L 6.5-8.1 04/09/2017 6:50am 04/09/2017 7:32am Albumin 2.8 g/dL L 3.5-5.0 04/09/2017 6:50am 04/09/2017 7:32am Globulin 3.5 g/dL 2.3-3.5 04/09/2017 6:50am 04/09/2017 7:32am Albumin/Globulin Ratio 0.8 0.8-2.0 04/09/2017 6:50am 04/09/2017 7: 32am Alkaline Phosphatase 62 IU/L 40-150 04/09/2017 6:50am 04/09/2017 7: 32am B-Type Natriuretic Peptide 224.0 pg/mL H 0-100 04/05/2017 11:55am 2016 1:07pm Creatine Kinase 173 IU/L 30-200 04/06/2017 7:45am 04/06/2017 8:55am Creatine Kinase MB 1.50 ng/mL 0.00-5.00 04/06/2017 7:45am 04/06/2017 9: 11am Troponin I 0.095 ng/mL 0-0.300 04/06/2017 7:45am 04/06/2017 9:11am Lipase 11 U/L 8-78 04/05/2017 11:55am 04/05/2017 12:48pm Thyroid Stimulating Hormone (TSH) 1.024 uIU/mL 0.350-4.940 04/05/2017 11 :55am 04/05/2017 1:07pm Urine Color YELLOW YELLOW 04/25/2017 2:00pm 04/28/2017 11:12am Urine Clarity SL CLOUDY H CLEAR 04/25/2017 2:00pm 04/28/2017 11:12am Urine Specific [place] 1.025 1.010-1.025 04/25/2017 2:00pm 2017 11:12am Urine pH 5 5 - 7 04/25/2017 2:00pm 04/28/2017 11:12am Urine Leukocyte Esterase NEGATIVE NEGATIVE 04/25/2017 2:00pm 2017 11:12am Urine Nitrite NEGATIVE NEGATIVE 04/25/2017 2:00pm 04/28/2017 11:12am Urine Protein 2+ H NEGATIVE 04/25/2017 2:00pm 04/28/2017 11:12am Urine Glucose (UA) NEGATIVE NEGATIVE 04/25/2017 2:00pm 04/28/2017 11: 12am Urine Ketones TRACE H NEGATIVE 04/25/2017 2:00pm 04/28/2017 11:12am Urine Urobilinogen 0.2 mg/dL 0.2 - 1 04/25/2017 2:00pm 04/28/2017 11: 12am Urine Bilirubin NEGATIVE NEGATIVE 04/25/2017 2:00pm 04/28/2017 11: 12am Urine Blood NEGATIVE NEGATIVE 04/25/2017 2:00pm 04/28/2017 11:12am Urine WBC 0-5 /HPF 0-5 04/25/2017 2:00pm 04/28/2017 11:12am Urine RBC NONE /HPF 0-5 04/25/2017 2:00pm 04/28/2017 11:12am Urine Bacteria NONE /HPF NONE 04/25/2017 2:00pm 04/28/2017 11:12am Urine Epithelial Cells RARE /LPF NONE 04/25/2017 2:00pm 04/28/2017 11: 12am Ammonia 36 UG/DL 31-123 04/29/2017 3:00pm 04/29/2017 4:24pm White Blood Count 9.73 x10e3/uL 4.8-10.8 05/06/2017 12:00pm 05/06/2017 5:24pm Red Blood Count 3.48 x10e6/uL L 4.3-5.7 05/06/2017 12:00pm 05/06/2017 5: 24pm Hemoglobin 10.0 g/dL L 14.0-18.0 05/06/2017 12:00pm 05/06/2017 5:24pm Hematocrit 31.5 % L 38.2-49.6 05/06/2017 12:00pm 05/06/2017 5:24pm Mean Corpuscular Volume 90.5 fL 81-99 05/06/2017 12:00pm 05/06/2017 5: 24pm Mean Corpuscular Hemoglobin 28.7 pg 28-32 05/06/2017 12:00pm 2017 5:24pm Mean Corpuscular Hemoglobin Concent 31.7 g/dL 31-35 05/06/2017 12:00pm 05/06/2017 5:24pm Red Cell Distribution Width 16.5 % H 11.7-14.4 05/06/2017 12:00pm 2017 5:24pm Platelet Count 233 x10e3/uL 140-360 05/06/2017 12:00pm 05/06/2017 5: 24pm Neutrophils (%) (Auto) 80.8 % H 38.7-80.0 05/06/2017 12:00pm 05/06/2017 5:24pm Lymphocytes (%) (Auto) 8.0 % L 18.0-39.1 05/06/2017 12:00pm 05/06/2017 5 :24pm Monocytes (%) (Auto) 8.7 % 4.4-11.3 05/06/2017 12:00pm 05/06/2017 5: 24pm Eosinophils (%) (Auto) 1.6 % 0.0-6.0 05/06/2017 12:00pm 05/06/2017 5: 24pm Basophils (%) (Auto) 0.3 % 0.0-1.0 05/06/2017 12:00pm 05/06/2017 5: 24pm IM GRANULOCYTES % 0.6 % 0.0-1.0 05/06/2017 12:00pm 05/06/2017 5:24pm Neutrophils # (Auto) 7.9 H 2.1-6.9 05/06/2017 12:00pm 05/06/2017 5: 24pm Lymphocytes # (Auto) 0.8 L 1.0-3.2 05/06/2017 12:00pm 05/06/2017 5: 24pm Monocytes # (Auto) 0.9 H 0.2-0.8 05/06/2017 12:00pm 05/06/2017 5:24pm Eosinophils # (Auto) 0.2 0.0-0.4 05/06/2017 12:00pm 05/06/2017 5: 24pm Basophils # (Auto) 0.0 0.0-0.1 05/06/2017 12:00pm 05/06/2017 5:24pm Absolute Immature Granulocyte (auto 0.06 x10e3/uL 0-0.1 05/06/2017 12: 00pm 05/06/2017 5:24pm Sodium Level 142 mmol/L 136-145 05/06/2017 12:00pm 05/06/2017 5:20pm Potassium Level 3.7 mmol/L 3.5-5.1 05/06/2017 12:00pm 05/06/2017 5: 20pm Chloride Level 108 mmol/L H 98-107 05/06/2017 12:00pm 05/06/2017 5:20pm Carbon Dioxide Level 23 mmol/L 22-29 05/06/2017 12:00pm 05/06/2017 5: 20pm Anion Gap 14.7 mmol/L 8-16 05/06/2017 12:00pm 05/06/2017 5:20pm Blood Urea Nitrogen 26 mg/dL 7-26 05/06/2017 12:00pm 05/06/2017 5:20pm Creatinine 2.08 mg/dL H 0.72-1.25 05/06/2017 12:00pm 05/06/2017 5:20pm BUN/Creatinine Ratio 13 6-25 05/06/2017 12:00pm 05/06/2017 5:20pm Estimat Glomerular Filtration Rate 30 ML/MIN L 60- 05/06/2017 12:00pm 5:20pm Ranges were taken from the National Kidney Disease Education Program and the National Kid[employer] Foundation literature. Reference ranges: 60 or greater: Normal 16-59 (for 3 consecutive months): Chronic kidney disease 15 or less: Kidney failure Glucose Level 115 mg/dL 74-118 05/06/2017 12:00pm 05/06/2017 5:20pm Calcium Level 8.5 mg/dL 8.4-10.2 05/06/2017 12:00pm 05/06/2017 5:20pm Microbiology Results Procedure Source Organism/Result Collection Date/Time Result Date/Time Result Status Blood Culture Blood NO GROWTH AFTER 5 DAYS, FINAL REPORT 04/05/2017 11: 55am 04/10/2017 12:29pm Final Procedures Procedure Status Date Provider(s) TRANSFUSE NONAUT RED BLOOD CELLS IN PERIPH VEIN, PERC Completed 04/07/17 HELENA LEVINE MD US abdomen complete Active 10/30/16 JANNETTE SETH MD US abdomen limited Active 11/05/16 JANNETTE SETH MD X-ray of chest, two views Active 04/08/17 HELENA LEVINE MD Computed tomography of brain without radiopaque contrast Active 06/19/17 ALFIE PARR MD Computed tomography of cervical spine without contrast Active 06/19/17 ALFIE PARR MD Encounters Encounter Location Arrival/Admit Date Discharge/Depart Date Attending Provider Departed Emergency Room [facility] 06/19/17 3:42am 6:02am ALFIE PARR MD Registered Clinic [facility] 05/06/17 11:00am HELENA LEVINE MD Registered Clinic [facility] 05/02/17 11:30am HELENA LEVINE MD Registered Clinic [facility] 04/26/17 11:20am EHLENA LEVINE MD Registered Clinic [facility] 04/25/17 1:30pm HELENA LEVINE MD Registered Clinic [facility] 04/16/17 9:00am HELENA LEVINE MD Discharged Inpatient [facility] 04/05/17 1:35pm 04/10/17 4:00pm HELENA LEVINE MD Registered Clinic [facility] 11/05/16 9:42am JANNETTE SETH MD Registered Clinic [facility] 10/30/16 10:06am JANNETTE SETH MD
[2017-06-20 08:28] LABS: BASOPHILS % 0.3 % (0.0-1.0); EOSINOPHILS # (AUTO) 0.1 (0.0-0.4); EOSINOPHILS % 1.2 % (0.0-6.0); HEMATOCRIT 29.2 % (38.2-49.6); HEMOGLOBIN 9.4 g/dL (14.0-18.0); LYMPHOCYTES # (AUTO) 0.7 (1.0-3.2); LYMPHOCYTES % 9.8 % (18.0-39.1); MEAN CORPUSCULAR HEMOGLOBIN 28.5 pg (28-32); MEAN CORPUSCULAR HGB CONC 32.2 g/dL (31-35); MEAN CORPUSCULAR VOLUME 88.5 fL (81-99); MONOCYTES # (AUTO) 0.5 (0.2-0.8); MONOCYTES % 7.2 % (4.4-11.3); NEUTROPHILS # (AUTO) 5.6 (2.1-6.9); NEUTROPHILS % 81.1 % (38.7-80.0); PLATELET COUNT 235 x10e3/uL (140-360); RED CELL DISTRIBUTION WIDTH 16.6 % (11.7-14.4)
[2017-06-20] MEDS ORDERED: SODIUM CHLORIDE 0.9% 1000ML 1,000 ML IV STA (08:38)
[2017-06-20 08:52] LABS: ANION GAP 16.9 mmol/L (8-16); CREATININE, SERUM 2.07 mg/dL (0.72-1.25); POTASSIUM 3.9 mmol/L (3.5-5.1)
[2017-06-20 08:59] LABS: CREATINE KINASE MB 7.6 ng/mL (0-5.0)
[2017-06-20] MEDS ORDERED: LIDOCAINE JELLY 2% 10ML URO-JET TOP ONE (09:00)
[2017-06-20] MEDS ORDERED: SODIUM CHLORIDE 0.9% 1000ML 1,000 ML IV SCH (09:00)
[2017-06-20] MEDS ORDERED: SODIUM CHLORIDE 0.9% 500ML 500 ML IV ONE (09:00)
[2017-06-20] MEDS ORDERED: DEXTROSE 50% SYRINGE 50 ML IV PRN (09:00)
[2017-06-20 09:40] LABS: BILIRUBIN,URINE NEGATIVE (NEGATIVE); COLOR,URINE YELLOW (YELLOW); KETONES,URINE NEGATIVE (NEGATIVE); LEUKOCYTE ESTERASE ,URINE NEGATIVE (NEGATIVE); NITRITE,URINE NEGATIVE (NEGATIVE); URINE UROBILINOGEN 0.2 mg/dL (0.2 - 1)
[2017-06-20 09:42] LABS: CLARITY,URINE HAZY (CLEAR); PROTEIN,URINE DIPSTICK 2+ (NEGATIVE)
--- NOTE | 2017-06-20 09:44 | Diagnostic Imaging Report ---
PROCEDURE:PELVIS AP 1-2 VIEWS TECHNIQUE:AP pelvis INDICATION:Pelvic fracture COMPARISON:None. FINDINGS: The pelvis and regional skeleton are intact and in anatomic alignment. Moderate degenerative changes are present at the hips bilaterally. Multilevel degenerative disc disease. CONCLUSION: No evidence of pelvic fracture. Dictated by: Chu Kc M.D. on 06/20/2017 at 9:44 Electronically approved by: Chu Kc M.D. on 06/20/2017 at 9:44
[2017-06-20 09:53] LABS: AMORPHOUS SEDIMENT,URINE MODERATE (FEW); BACTERIA,URINE RARE /HPF; EPITHELIAL CELLS,URINE RARE /LPF; RBC,URINE 0-5 /HPF (0-5); WBC,URINE (MAN) 0-5 /HPF (0-5)
[2017-06-20 09:57] LABS: MAGNESIUM 1.8 MG/DL (1.3-2.1)
--- NOTE | 2017-06-20 10:06 | Diagnostic Imaging Report ---
Examination: CT BRAIN WITHOUT CONTRAST History:Fall. Comparison studies:Head CT performed June 19, 2017 Technique: Axial images were obtained from the skull base to the vertex. Coronal and sagittal images reconstructed from the axial data. Intravenous contrast: None Findings: Scalp: Unchanged small right frontal and supraorbital scalp hematoma. Bones: No fractures, blastic or lytic lesions. Brain sulci: Mild volume loss for age. Ventricles: No hydrocephalus. Extra-axial space: No abnormalities. Parenchyma: There are thin periventricular confluent areas of hypoattenuation, nonspecific. Chronic lacunar infarcts in the left subinsular region and left inferior cerebellum. No masses, hemorrhage, or acute or chronic cortical based vascular insults. Sellar/suprasellar region: No abnormalities. Craniocervical junction: Patent foramen magnum. No Chiari one malformation. Incidental findings: Atherosclerotic calcification of the cavernous and supraclinoid internal carotid and V4 segments of the bilateral vertebral arteries.. Impression: 1. No new or acute intracranial abnormality. No change from prior head CT performed June 19, 2017. 2. Unchanged small right frontal and supraorbital scalp hematoma. 3. Unchanged chronic findings, as above. Signed by: Dr. Nely House M.D. on 06/20/2017 10:03 AM
--- NOTE | 2017-06-20 10:09 | Diagnostic Imaging Report ---
Examination: CT CERVICAL SPINE WITHOUT CONTRAST HISTORY:Fall. Neck pain. COMPARISON:Cervical spine CT performed June 19, 2017. TECHNIQUE: Multidetector helical axial images were obtained without contrast from the foramen magnum to T1. Coronal and sagittal reformatted images were done. Bone and soft tissue windows were evaluated. FINDINGS: Alignment:Normal alignment and lordosis. Vertebrae: Normal height and density. No acute fracture, infection or neoplasm. Disc space heights: Mildly narrowed at C2-C3 and C5-C6. Caliber of spinal canal: Developmentally normal. Posterior fossa and craniocervical junction: Foramen magnum patent. No Chiari 1 malformation. Soft tissues: Large bilateral pleural effusions. Degenerative changes: Moderate degenerative changes at the anterior C1-C2 articulation with moderate dystrophic ossification inferior to the anterior C1 arch. Anterior osteophytosis from C2 to C7. Mildly degenerated disks from C2 to T1. No significant canal stenosis. Mild multilevel facet arthrosis. Mild foraminal stenosis on the left at C3-C4 and mild to moderate foraminal stenosis on the right at C5-C6 due to uncovertebral arthrosis. IMPRESSION: No new or acute abnormalities. No change from prior cervical spine CT dated 06/19/2017. Signed by: Dr. Nely House M.D. on 06/20/2017 10:06 AM
[2017-06-20 10:17] LABS: THYROID STIMULATING HORMONE 3.26 uIU/mL (0.350-4.940)
[2017-06-20 10:40] VITALS: BP 116/66
--- NOTE | 2017-06-20 11:31 | Diagnostic Imaging Report ---
PROCEDURE:CHEST SINGLE (PORTABLE) TECHNIQUE:Portable AP chest INDICATION:Weakness COMPARISON:None. FINDINGS: Bilateral interstitial opacity with right hemithorax haziness. Enlarged cardiac silhouette with mild central vascular prominence. Grossly intact skeleton. There is a thin line overlying the right hemithorax, likely a tiny overlapping artifact CONCLUSION: 1. Cardiomegaly with pulmonary edema. Questionable small layering right pleural effusion. 2. Tiny lucency over the right hemithorax. Differential includes overlapping artifact and small right pneumothorax. Upright chest radiograph recommended. Dictated by: Chu Kc M.D. on 06/20/2017 at 11:31 Electronically approved by: Chu Kc M.D. on 06/20/2017 at 11:31
[2017-06-20 11:46] VITALS: BP 118/66
[2017-06-20] MEDS ORDERED: HYDRALAZINE HCL25 MG PO (13:54)
--- NOTE | 2017-06-20 13:57 | Consultation ---
DATE OF CONSULTATION: June 20, 2017 CARDIAC CONSULTATION REASON FOR CONSULTATION: Repeated fall, elevated troponin, elevated BNP of 4000. HISTORY: A very nice 89-year-old gentleman who is known with multiple medical health problems. His cardiac issues are CAD, status post PCI and stenting of the circumflex and the LAD. He does have chronic occlusion of the right coronary artery. His other problems include possible sick sinus syndrome, hypertension, peripheral arterial vascular disease. Patient does have history of diabetes with chronic renal insufficiency of many years' duration. In addition to that, he does have chronic anemia and chronic renal insufficiency stage 3 to stage 4. Patient also having problem with dementia. He is becoming more and more dependent on the care of the people around him. Patient came from a skilled nursing after falling yesterday and today. He had injury to his right eye. He got hematoma around that right eye. Patient is off anticoagulation because of his repeated fall. He is not on beta jorge because of his possible sick sinus syndrome. I visited with the patient, his daughter and his niece at bedside. He is in skilled nursing. He lost his , "which was healthier than him," in 2016 and since that time he is grieving and his case continues to deteriorate and his dementia becoming worse. Regarding his cardiac issue, there is no chest pain. He does have easy fatigability, shortness of breath on minimal activity. There is no change in the level of shortness of breath. He does have some feet swelling at times and cough. There is no angina. He does have fall, but it is not predicted by syncope or presyncope as per family. HOME MEDICATIONS: Include all the following: Lasix 40 mg a day, Zocor 20 mg a day, Flomax 0.4 mg a day, and other p.r.n. medications. ALLERGIES: NONE. PAST MEDICAL HISTORY: 1. Coronary artery disease post 2-vessel PCI and with known chronic totally occluded right coronary artery. 1. Chronic CHF. 2. Paroxysmal atrial fibrillation and sick sinus syndrome. 3. Hypertension. 4. Chronic renal disease. 5. Hypercholesterolemia. 6. Diabetes mellitus with end-organ damage. 7. Decreased vision. 8. Diverticulosis. 9. Past history of GI bleed. 10. Prostate problem. 11. Appendectomy. 12. Tonsillectomy. 13. Right and left cataract surgery. 14. Prostate cancer and bladder surgery. 15. Dementia. SOCIAL HISTORY: He is a . He lives now in [facility]. 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 He stopped smoking in 1986, is [id number]. REVIEW OF SYSTEMS: Was taken mainly from the family. GENERAL: Failure to thrive. Worsening mental condition. Worsening condition. Weakness. HEENT: Decreased vision. CARDIAC AND PULMONARY: As per acute illness. GI: Repeated bloating, constipation. : Difficult urination. HEMATOLOGY: Easy bruising. NEUROLOGIC: Patient is having repeated fall, weakness. His forgetfulness and dementia are getting worse. FAMILY HISTORY: Mother at age 72 with ruptured CV aneurysm. Father of accidental at age 82. He had a sister who in her 70s. Two daughters and 1 son. He lost his only son to an accident. Another daughter is diabetic. PHYSICAL EXAMINATION VITALS: Height of 5 feet 7 inches. Weight of 146 pounds. Blood pressure 110/60. Heart rate of 70. Respiratory rate of 18. Afebrile. HEENT: Pupils are equal, reactive. NECK: No elevation of jugular venous pulsation. CHEST: Bilateral coarse crackles. HEART: Normal 1st and 2nd heart sounds. ABDOMEN: Soft with good bowel sounds. EXTREMITIES: Mild peripheral edema. OTHER FINDINGS: Hematoma right eye. Patient is demented, and he does not know what is going on. He seems to be chronically ill. LAB DATA: BUN of 62, creatinine of 2.1. Sodium of 142, potassium 3.9. White blood cell count of 6.8, hemoglobin of 9.4, hematocrit of 29%, platelet count of 255,000. Troponin of 0.661. BNP of 4039. EKG showing many of artefact and nonspecific ST changes. Chest x-ray showing volume overload. CT scan of head, no acute changes. IMPRESSION AND PLAN: 1. Repeated fall, twice, with trauma to the right eye. 2. Congestive heart failure. 3. Coronary artery disease. 4. Paroxysmal atrial fibrillation. 5. Sick sinus syndrome. 6. Chronic renal insufficiency. 7. Diabetes mellitus. 8. Peripheral vascular disease. 9. Carotid disease. Cardiac-mccarthy, recommendation is very, very conservative approach. Medical therapy. Prognosis is good. In fact, we discussed with the family. They want mainly comfort care. Will stop his IV. Will follow his profile. I doubt his troponin secondary to myocardial infarction but will trend troponin, most likely secondary to his renal insufficiency. Case discussed and explained. Questions are answered. Job#: [id number] EV
[2017-06-20] MEDS ORDERED: LORAZEPAM 0.5 MG TAB PO PRN (14:00)
[2017-06-20 16:21] VITALS: BP 120/56
[2017-06-20 18:54] LABS: CREATINE KINASE MB 6.8 ng/mL (0-5.0)
[2017-06-20] MEDS: LORAZEPAM INJ 2 MG/ML VIAL IV PRN (19:20)
[2017-06-20 20:34] VITALS: BP 127/62
[2017-06-20] MEDS: HALOPERIDOL 5 MG TAB PO SCH (22:51)
[2017-06-21] VITALS (8 sets, daily range): BP systolic 110–162; BP diastolic 56–82
[2017-06-21] MEDS: LORAZEPAM INJ 2 MG/ML VIAL IV PRN ×2 (04:20→15:20)
[2017-06-21 06:47] LABS: BASOPHILS % 0.6 % (0.0-1.0); EOSINOPHILS # (AUTO) 0.1 (0.0-0.4); EOSINOPHILS % 0.7 % (0.0-6.0); HEMOGLOBIN 8.3 g/dL (14.0-18.0); LYMPHOCYTES # (AUTO) 0.8 (1.0-3.2); LYMPHOCYTES % 11.3 % (18.0-39.1); MEAN CORPUSCULAR HEMOGLOBIN 28.8 pg (28-32); MEAN CORPUSCULAR HGB CONC 31.9 g/dL (31-35); MEAN CORPUSCULAR VOLUME 90.3 fL (81-99); MONOCYTES # (AUTO) 0.5 (0.2-0.8); MONOCYTES % 7.5 % (4.4-11.3); NEUTROPHILS # (AUTO) 5.8 (2.1-6.9); NEUTROPHILS % 79.5 % (38.7-80.0); PLATELET COUNT 204 x10e3/uL (140-360); RED BLOOD COUNT 2.88 x10e6/uL (4.3-5.7); RED CELL DISTRIBUTION WIDTH 16.4 % (11.7-14.4)
[2017-06-21 07:16] LABS: CREATINE KINASE MB 6.8 ng/mL (0-5.0)
[2017-06-21 07:33] LABS: ALBUMIN 2.9 g/dL (3.5-5.0); ALBUMIN/GLOBULIN RATIO 0.9 (0.8-2.0); ANION GAP 17.1 mmol/L (8-16); CALCIUM 8.6 mg/dL (8.4-10.2); CREATININE, SERUM 1.93 mg/dL (0.72-1.25); POTASSIUM 4.1 mmol/L (3.5-5.1)
[2017-06-21] MEDS: HALOPERIDOL 5 MG TAB PO SCH (09:00)
[2017-06-21 13:30] LABS: CHOL/HDL RATIO 3.3 (3.9-4.7)
[2017-06-21] MEDS ORDERED: HALOPERIDOL LACTATE 5 MG/ML VIAL IM PRN (18:15)
[2017-06-22] VITALS (7 sets, daily range): BP systolic 123–167; BP diastolic 56–94
[2017-06-22] MEDS: LORAZEPAM INJ 2 MG/ML VIAL IV PRN ×2 (01:25→21:43)
[2017-06-22] MEDS ORDERED: MORPHINE SULFATE 4 MG/ML SYR IV PRN (12:45)
[2017-06-23] VITALS: BP 144/65
[2017-06-23] MEDS: LORAZEPAM INJ 2 MG/ML VIAL IV PRN ×2 (05:34→11:40)
[2017-06-23 07:30] VITALS: BP 130/60
[2017-06-23 07:54] VITALS: BP 130/60
[2017-06-23 12:47] VITALS: BP 126/67
[2017-06-23] MEDS: MORPHINE SULFATE 4 MG/ML SYR IV SCH ×3 (13:42→22:00)
[2017-06-23] MEDS ORDERED: MORPHINE SULFATE 2 MG/ML SYR ONE ×2 (13:43→18:12)
[2017-06-23 16:25] VITALS: BP 129/62
[2017-06-23] MEDS: LORAZEPAM INJ 2 MG/ML VIAL IV SCH ×2 (18:15→23:59)
[2017-06-23 21:21] VITALS: BP 138/63
[2017-06-24 01:54] VITALS: BP 133/63
[2017-06-24] MEDS: MORPHINE SULFATE 4 MG/ML SYR IV SCH ×3 (02:35→10:00)
[2017-06-24] MEDS: LORAZEPAM INJ 2 MG/ML VIAL IV SCH ×3 (04:03→12:00)
[2017-06-24 05:59] VITALS: BP 144/65
[2017-06-24 07:45] VITALS: BP 144/65
[2017-06-24 07:58] VITALS: BP 148/77
[2017-06-24] MEDS ORDERED: MORPHINE SULFATE 2 MG/ML SYR ONE (15:36)
[2017-06-24] MEDS ORDERED: MORPHINE SULFATE 2 MG/ML SYR IV PRN (15:45)
[2017-06-24] MEDS: MORPHINE SULFATE 2 MG/ML SYR IV SCH ×2 (16:00→22:13)
[2017-06-24 16:13] VITALS: BP 142/77
[2017-06-24 20:00] VITALS: BP 126/68
[2017-06-25] VITALS: BP 109/61
[2017-06-25 01:35] VITALS: BP 109/61
[2017-06-25] MEDS: MORPHINE SULFATE 2 MG/ML SYR IV SCH ×5 (02:00→16:50)
[2017-06-25 04:00] VITALS: BP 115/58
[2017-06-25] MEDS: LORAZEPAM INJ 2 MG/ML VIAL IV SCH ×3 (06:00→12:00)
[2017-06-25 07:58] VITALS: BP 109/73
--- NOTE | 2017-06-25 10:34 | Consultation ---
DATE OF CONSULTATION: June 21, 2017 PSYCHIATRIC CONSULTATION REASON FOR CONSULTATION: Evaluate the patient's agitation and dementia. HISTORY OF PRESENT ILLNESS: The patient is an 89-year-old male admitted to the hospital for dementia, diabetes mellitus. Psychiatric consultation is called to evaluate the patient's psychosis and dementia. As per the medical record, the patient has a history of cardiac issues, status post stenting. He has a history of diabetes, chronic renal insufficiency. He was at a [facility] and deteriorated from fall. He was taken to the hospital for further care. Upon evaluation today, the patient is found to be lying on the bed. He is restless, but not agitated or combative. He is unable to answer any questions. Collaborative report from the patient's family members who are in the room at the time of assessment, family member reported that the patient has a history of dementia, but worsened since [place]. He was living in a [facility], except for twice for a few months. The patient is currently n.p.o. Family members state that typically he is able to feed himself, walk with help, and some times conversation at times, but he has been declining. They reported they have decided with medical to place him on [facility]osp[facility]. As per nursing staff, the patient received Haldol p.o. 5 mg and was very sedated with that. Family members are anxious regarding his restlessness. They do want comfort measures to help with his restlessness. PAST PSYCHIATRIC HISTORY: The patient has a history of dementia. He has not attempted suicide in the past. He does not drink or use any drugs. FAMILY HISTORY: Unknown. SOCIAL HISTORY: The patient lives at [facility]. MENTAL STATUS EXAMINATION GENERAL: The patient is an elderly male. He is alert, awake, but unable to answer questions due to his mentation. He is restless, but not combative. Memory is grossly impaired. Insight and judgment are impaired. Assessment is limited due to his cognition. CURRENT MEDICATIONS 1. Ativan 0.5 mg IV q.6 h. p.r.n. 2. Haldol p.r.n. p.o. scheduled was held due to sedation. 3. Dextrose. CURRENT LABS: WBC 7.23, RBC 2.8, hemoglobin 8.3, hematocrit 26, and platelets 204,000. Sodium 133, potassium 4.1, chloride 112, BUN 59, creatinine 1.93. ASSESSMENT: Unspecified psychosis; unspecified dementia with behavioral disturbances. PLAN: Discontinue Haldol 5 mg p.o. q.12 h. scheduled. Add Haldol 1 mg IM q.6 h. p.r.n. Continue Ativan p.r.n. IV. Discussed with nursing staff. Monitor for agitation and sedation. Thank you for the consultation. DICTATED BY RUSSEL RAMIREZ Job#: [id number] IDALIA
[2017-06-25 11:40] VITALS: BP 123/80
[2017-06-25 16:00] VITALS: BP 116/62
== END 2017-06-25 19:58 | disposition hospice, inpatient (51) | DRG 292 ==
LOC: ER 07:19 → ERHOLD 09:42 → MED/SURG3 10:28
DX: I13.0 Hypertensive heart and chronic kidney disease with heart failure and stage 1 through stage 4 chronic kidney disease, or unspecified chronic kidney disease (principal); I50.42 Chronic combined systolic (congestive) and diastolic (congestive) heart failure; N18.4 Chronic kidney disease, stage 4 (severe); E13.8 Other specified diabetes mellitus with unspecified complications; F05 Delirium due to known physiological condition; I49.5 Sick sinus syndrome; F03.91 Unspecified dementia, unspecified severity, with behavioral disturbance; R53.1 Weakness; W06.XXXA Fall from bed, initial encounter; S50.812A Abrasion of left forearm, initial encounter; I49.9 Cardiac arrhythmia, unspecified; I25.10 Atherosclerotic heart disease of native coronary artery without angina pectoris; I48.0 Paroxysmal atrial fibrillation; I73.9 Peripheral vascular disease, unspecified; Z95.5 Presence of coronary angioplasty implant and graft; Z66 Do not resuscitate
CPT/HCPCS: 36415; 51700; 70450; 71045; 72125; 72170; 80048; 80053; 80061; 81001; 82550; 82553; 82948; 83690; 83735; 83880; 84443; 84484; 85025; 87040; 87086; 93005; 93306; 99284; J1630; J2060; J2270; J7030; J7040